=== PATIENT | male | born 1940 | race Caucasian/White ===

== ENCOUNTER 2019-08-18 09:55 | Outpatient (CLI) | payer MEDICARE ==
--- NOTE | 2019-08-18 10:44 | ULT ---
ULTRASOUND ABDOMEN COMPLETE: DATE: 08/18/2019 HISTORY: 79-year-old male with abdominal mass. FINDINGS: Liver:Normal size and echogenicity. A couple of tiny cysts on the order of 1 cm in size each, one in the right lobe and one in the left lobe. Gallbladder:Not excessively distended. Normal mural thickness 2 mm. No gallstones or sludge identifie d. No pericholecystic fluid. Common duct:4 mm. Spleen:No splenomegaly. Pancreas:Poorly visualized Kidneys:The very large number of cysts, small, moderate, and large. One of the larger ones on the rig ht is 8.5 cm. One of the larger ones on the left is 9.5 cm. No obvious hydronephrosis identified. Abdominal aorta:No aneurysm. Inferior vena cava:Unremarkable where visualized. IMPRESSION: a very large number of bilateral renal cysts, including large cysts. 3.5 x 6 cm exophytic left renal cyst corresponds to the palpable lump, according to the gold cutter.
== END 2019-08-18 09:56 | disposition home or self-care (01) ==
LOC: BICULT 09:55
PROVIDERS: ATTEND Nurse Practitioner Family
DX: R19.04 Left lower quadrant abdominal swelling, mass and lump (principal); N28.1 Cyst of kidney, acquired
CPT/HCPCS: 93975

== ENCOUNTER 2020-08-31 12:34 | Outpatient (CLI) | payer MEDICARE | END 2020-08-31 12:35 | disposition home or self-care (01) | LOC: BICULT 12:34 | PROVIDERS: ATTEND Nurse Practitioner Family | DX: N28.1 Cyst of kidney, acquired (principal) | CPT/HCPCS: 76770 ==

== ENCOUNTER 2020-09-21 08:27 | Outpatient (CLI) | payer MEDICARE | END 2020-09-21 08:28 | disposition home or self-care (01) | LOC: CT 08:27 | PROVIDERS: ATTEND Nurse Practitioner Family | DX: N28.1 Cyst of kidney, acquired (principal); R91.8 Other nonspecific abnormal finding of lung field; K57.30 Diverticulosis of large intestine without perforation or abscess without bleeding | CPT/HCPCS: 74176 ==

== ENCOUNTER 2020-09-29 08:07 | Outpatient (CLI) | payer MEDICARE | END 2020-09-29 08:08 | disposition home or self-care (01) | LOC: BICRAD 08:07 | PROVIDERS: ATTEND Nurse Practitioner Family | DX: R05 Cough (principal) | CPT/HCPCS: 71046 ==

== ENCOUNTER 2021-09-19 10:18 | Outpatient (CLI) | payer MEDICARE | END 2021-09-19 10:19 | disposition home or self-care (01) | LOC: BICULT 10:18 | PROVIDERS: ATTEND Urology | DX: N28.1 Cyst of kidney, acquired (principal); Z87.442 Personal history of urinary calculi | CPT/HCPCS: 76770 ==

== ENCOUNTER 2022-11-16 08:54 | Outpatient (CLI) | payer MEDICARE, BC | END 2022-11-16 08:55 | disposition home or self-care (01) | LOC: BICULT 08:54 | PROVIDERS: ATTEND Urology | DX: Q61.3 Polycystic kidney, unspecified (principal); N28.89 Other specified disorders of kidney and ureter | CPT/HCPCS: 76770 ==

== ENCOUNTER 2022-12-03 07:23 | Outpatient (CLI) | payer MEDICARE, BC ==
[2022-12-03] MEDS ORDERED: Iopamidol 370 76% 100 ML VIAL ONE (09:34)
== END 2022-12-03 07:24 | disposition home or self-care (01) ==
LOC: CT 07:23
PROVIDERS: ATTEND Urology
DX: Q61.3 Polycystic kidney, unspecified (principal); N28.1 Cyst of kidney, acquired; N28.89 Other specified disorders of kidney and ureter
CPT/HCPCS: 74170; 82565; Q9967

== ENCOUNTER 2023-10-08 07:36 | Outpatient (CLI) | payer MEDICARE, BC | END 2023-10-08 07:37 | disposition home or self-care (01) | LOC: BICULT 07:36 | PROVIDERS: ATTEND Urology | DX: Q61.3 Polycystic kidney, unspecified (principal); N28.1 Cyst of kidney, acquired; N28.81 Hypertrophy of kidney | CPT/HCPCS: 76770 ==

== ENCOUNTER 2024-01-14 09:54 | Outpatient (CLI) | payer MEDICARE, BC | END 2024-01-14 09:55 | disposition home or self-care (01) | LOC: MRI 09:54 | PROVIDERS: ATTEND Psychiatry & Neurology Neurology | DX: R41.3 Other amnesia (principal); I67.89 Other cerebrovascular disease; R90.89 Other abnormal findings on diagnostic imaging of central nervous system; J34.89 Other specified disorders of nose and nasal sinuses | CPT/HCPCS: 70551 ==

== ENCOUNTER 2024-10-22 07:28 | Outpatient (CLI) | payer MEDICARE, BC | END 2024-10-22 07:29 | disposition home or self-care (01) | LOC: BICULT 07:28 | PROVIDERS: ATTEND Urology | DX: Q61.3 Polycystic kidney, unspecified (principal); N28.81 Hypertrophy of kidney | CPT/HCPCS: 76770 ==